=== PATIENT | female | born 1990 | race Caucasian/White ===

== ENCOUNTER 2017-10-10 17:06 | Emergency (ER) | payer SELFPAY ==
[~2017-10-10] VITALS: Ht 175.3 cm; Wt 60.0 kg
[2017-10-10 17:36] VITALS: BP 129/70; PULSE 80; RESP 18; TEMP 98.2; O2SAT 100
--- NOTE | 2017-10-10 18:22 | RADRPT ---
EXAM DATE/TIME: 10/10/2017 17:51 [place] COMPARISON: No previous studies available for comparison. EXTERNAL COMPARISON : INDICATIONS : Twisted knee today. MEDICAL HISTORY : None. SURGICAL HISTORY : None. ENCOUNTER: Initial ACUITY: 1 day PAIN SCORE: 3/10 LOCATION: Left entire knee FINDINGS: Two view examination of the left knee demonstrates no evidence of fracture or dislocation. Bony mine ralization is normal. The suprapatellar soft tissues have a normal configuration. CONCLUSION: Unremarkable limited examination of the left knee. Tae George MD on October 10, 2017 at 18:19 Board Certified Radiologist. This report was verified electronically.
--- NOTE | 2017-10-10 18:35 | PD ---
HPI Chief Complaint: Fall Time Seen by Provider: 17:34 Travel History International Travel<30 days: No Contact w/Intl Traveler<30days: No Traveled to known affect area: No History of Present Illness HPI Patient is a 27-year-old female who comes in with a dislocated patella on the left. She says that she slipped and twisted her knee and felt her kneecap come out of place. She says this happened once before while she was doing squats in the gym that it popped writing on its own. He rates she denies any other injuries. She is currently 6 weeks . She denies any abdominal pain any vaginal bleeding or any leakage of fluids. PFSH Past Medical History ?: Social History Alcohol Use: No Tobacco Use: No Substance Use: No Allergies-Medications (Allergen,Severity, Reaction): Coded Allergies: No Known Allergies (Unverified , 10/10/17) Review of Systems General / Constitutional: No: Fever, Chills HENT: No: Headaches, Lightheadedness Cardiovascular: No: Chest Pain or Discomfort Respiratory: No: Shortness of Breath Gastrointestinal: No: Vomiting, Abdominal Pain Musculoskeletal: Positive: Pain Neurologic: No: Weakness, Dizziness, Paresthesia Physical Exam Narrative GENERAL: Awake and alert, in moderate distress due to pain. SKIN: Focused skin assessment warm/dry. No lesions. HEAD: Atraumatic. Normocephalic. EYES: Pupils equal and round. No scleral icterus. ENT: Mucous membranes pink and moist. CARDIOVASCULAR: Regular rate and rhythm. No murmur appreciated. RESPIRATORY: No accessory muscle use. Clear to auscultation. Breath sounds equal bilaterally. GASTROINTESTINAL: Abdomen soft, non-tender, nondistended. MUSCULOSKELETAL: No obvious deformities. No clubbing. No cyanosis. No edema. Left patella is laterally displaced. Pedal pulses intact. NEUROLOGICAL: Awake and alert. No obvious cranial nerve deficits. Motor grossly within normal limits. Normal speech. Sensation intact. Data Data Last Documented VS Vital Signs Date Time Temp Pulse Resp B/P (MAP) Pulse Ox O2 Delivery O2 Flow Rate FiO2 10/10/17 17:37 76 18 100 Room Air 10/10/17 17:36 98.2 129/70 (89) Orders Orders ^ Knee Immobilizer (10/10/17 17:34) Knee, Ltd (1 Or 2vws) (10/10/17 ) Immobilizer Knee 20 Inch (10/10/17 ) Crutches (10/10/17 18:35) Ed Discharge Order (10/10/17 18:35) MDM Medical Decision Making Medical Screen Exam Complete: Yes Emergency Medical Condition: Yes Differential Diagnosis Patellar dislocation versus fracture versus patellar tendon rupture Narrative Course Patient is a 27-year-old female who comes in complaining of pain after she twisted her knee. She has obvious dislocation of her left patella. Patient is 6 weeks , she does not want any pain medicine or sedation. Patella was reduced without incident. X-ray shows no acute abnormalities. Patient placed in a knee immobilizer. Given crutches. Advised follow-up with orthopedics. Advised to return to ED as needed for any worsening symptoms. Procedures Procedure Narrative Traction applied to patella with easy reduction of the patella. Patient tolerated the procedure well. Placed in knee immobilizer. Diagnosis Primary Impression: Patellar dislocation Qualified Codes: S83.005A - Unspecified dislocation of left patella, initial encounter Referrals: Flaquito Siegel MD call for appointment Patient Instructions: General Instructions, Knee Immobilizer (ED), Patellar Dislocation (ED) Additional Instructions: Wear the knee immobilizer until you're able to see orthopedics. Return to the ED as needed for any worsening symptoms. Disposition: 01 DISCHARGE HOME Condition: Stable Latasha Butt MD Oct 10, 2017 18:35
== END 2017-10-10 19:45 | disposition home or self-care (01) ==
LOC: NEPC 17:06
DX: O9A.211 Injury, poisoning and certain other consequences of external causes complicating pregnancy, first trimester (principal); S83.005A Unspecified dislocation of left patella, initial encounter; W01.0XXA Fall on same level from slipping, tripping and stumbling without subsequent striking against object, initial encounter; Z3A.01 Less than 8 weeks gestation of pregnancy
CPT/HCPCS: 27560; 73560; 99284; E0113; L1830